=== PATIENT | female | born 1950 | race Caucasian/White ===

== ENCOUNTER 2018-04-20 08:30 | Inpatient (IN) | payer OTHER ==
[~2018-04-20] VITALS: Ht 170.2 cm; Wt 119.7 kg
[2018-04-20 08:35] VITALS: Ht 170.2 cm; Wt 119.7 kg
[2018-04-20 09:30] LABS: BASOPHIL % 0.3 % (0-2); PLATELET COUNT 172 x10^3mcL (130-400)
[2018-04-20 09:43] LABS: CALCIUM 8.3 mg/dL (8.5-10.1); CARBON DIOXIDE 27.8 mmol/L (21-32); CHLORIDE SERUM 101 mmol/L (98-107); CREATININE SERUM 0.8 mg/dL (0.6-1.0); GFR1 > 60 mL/min; GLUCOSE SERUM 103 mg/dL (74-106); POTASSIUM SERUM 3.6 mmol/L (3.5-5.1); SODIUM SERUM 130 mmol/L (136-145)
[2018-04-20 09:48] LABS: ALKALINE PHOSPHATASE 65 U/L (46-116); ALT/SGPT 23 U/L (14-59); AST/SGOT 23 U/L (15-37); BILIRUBIN TOTAL 0.47 mg/dL (0.20-1.00); CHOLESTEROL 171 mg/dL (<200); HDL CHOLESTEROL 58 mg/dL (40-60); TOTAL PROTEIN, SERUM 7.1 g/dL (6.4-8.2)
[2018-04-20 09:51] LABS: ALBUMIN 3.2 g/dL (3.4-5.0)
[2018-04-20] MEDS ORDERED: GOOD SENSE OMEP20 MG PO (10:51)
[2018-04-20] MEDS ORDERED: TENORMIN50 MG PO (10:52)
[2018-04-20 11:46] LABS: microscopic required? YES; urine erythrocyte TRACE (NEGATIVE)
[2018-04-20 13:50] VITALS: BP 152/58
[2018-04-20 15:25] VITALS: BP 152/58
[2018-04-20 17:35] VITALS: BP 118/46
[2018-04-20 20:35] VITALS: BP 123/55
[2018-04-21 05:38] VITALS: BP 140/46
[2018-04-21 07:21] LABS: BASOPHIL % 0.6 % (0-2); PLATELET COUNT 161 x10^3mcL (130-400); RED CELL DISTRIBUTION WIDTH 14.1 % (11.5-14.5)
[2018-04-21 07:22] LABS: CALCIUM 8.6 mg/dL (8.5-10.1); CARBON DIOXIDE 30.9 mmol/L (21-32); CHLORIDE SERUM 105 mmol/L (98-107); CREATININE SERUM 0.7 mg/dL (0.6-1.0); GFR1 > 60 mL/min; GLUCOSE SERUM 114 mg/dL (74-106); POTASSIUM SERUM 4.4 mmol/L (3.5-5.1); SODIUM SERUM 141 mmol/L (136-145)
[2018-04-21 07:35] VITALS: BP 156/66
[2018-04-21 12:15] VITALS: BP 130/55
[2018-04-21 16:30] VITALS: BP 135/57
[2018-04-21 20:53] VITALS: BP 131/67
[2018-04-22 05:57] VITALS: BP 137/54
[2018-04-22 06:51] LABS: BASOPHIL % 0.5 % (0-2); PLATELET COUNT 171 x10^3mcL (130-400); RED CELL DISTRIBUTION WIDTH 14.3 % (11.5-14.5)
[2018-04-22 07:27] LABS: CALCIUM 8.5 mg/dL (8.5-10.1); CARBON DIOXIDE 32.3 mmol/L (21-32); CHLORIDE SERUM 103 mmol/L (98-107); CREATININE SERUM 0.7 mg/dL (0.6-1.0); GFR1 > 60 mL/min; GLUCOSE SERUM 103 mg/dL (74-106); POTASSIUM SERUM 4.3 mmol/L (3.5-5.1); SODIUM SERUM 140 mmol/L (136-145)
[2018-04-22 08:00] VITALS: BP 128/60
[2018-04-22 12:10] VITALS: BP 134/69
[2018-04-22 15:29] VITALS: BP 134/69
== END 2018-04-22 16:22 | disposition home or self-care (01) | DRG 193 ==
LOC: ED 08:30 → DU 12:44
PROVIDERS: Emergency Medicine; Internal Medicine Pulmonary Disease; ADMIT Internal Medicine
DX: J09.X2 Influenza due to identified novel influenza A virus with other respiratory manifestations (principal); J80 Acute respiratory distress syndrome; E87.1 Hypo-osmolality and hyponatremia; I10 Essential (primary) hypertension
CPT/HCPCS: 83880; 87804; J0456; J7050; J7613; J7620; Q0092